=== PATIENT | male | born 1955 | race Two or more races ===

== ENCOUNTER 2024-10-21 18:45 | Emergency (ER) | payer SELFPAY ==
[2024-10-21 18:55] VITALS: BP 170/95; PULSE 101; RESP 20; TEMP 36.9; O2SAT 95
--- NOTE | 2024-10-21 19:05 | PD.EDRME ---
Rapid Medical Screening Exam RME Arrival date/time: 10/21/24 18:45 69M with no known PMH (doesn't go to PCP) presents to ED with daughter for worsening wound on mid back that's been there for the past few years but got worse recently. Chief Complaint: Wound/Laceration Vital signs: Vital Signs Temperature 98.4 F 10/21/24 18:55 Pulse Rate 101 H 10/21/24 18:55 Respiratory Rate 20 10/21/24 18:55 Blood Pressure 170/95 H 10/21/24 18:55 Pulse Oximetry (%) 95 10/21/24 18:55 Oxygen Delivery Method Room Air 10/21/24 18:55
--- NOTE | 2024-10-21 19:06 | XR_ITS ---
Examination: CT lumbar spine, without contrast. 2-D sagittal reconstructions. 2-D coronal reconstructions. 3-D reconstructions. Date and time of exam:October 21, 2024 1911 hrs. Indications: Low back pain upper back pain this month, drainage CTDI: vol (mGy):21.1 DLP: (mGycm):590 Technique: Multiple 1.25 mm axial sections of the lumbar spine without intravenous contrast have been obtained. 2-D sagittal and coronal reconstructions have been obtained. 3-D reconstructions have been obtained. Low dose protocols were performed. One or more of the following dose reduction techniques were used; automated exposure control, adjustment of the mA and/or KV according to patient size, use of iterative reconstruction technique. Findings: Adequate alignment lumbar vertebral bodies on the lateral view Fluid collection in the soft tissue posterior to L3 through the sacrum, 27 mm mediolateral dimension AP dimension at least 21 mm, cephalad caudad dimension the lumbar area at least 9 cm Chronic compression L3 Moderate to advanced disc narrowing L4-L5 Transitional S1 vertebral bodies L5-S1 6 mm central lumbar disc bulge L4-L5 foraminal disc bulges L3-L4 no disc protrusion L2-3 no disc protrusion Impression: Fluid collection in the subcutaneous tissue posterior to L3 through the sacrum, 21 x 27 x 19 mm, differential would include seroma, soft tissue abscess, less likely hematoma recommend MRI lumbar spine follow-up pre and postcontrast
--- NOTE | 2024-10-21 19:06 | XR_ITS ---
Examination: CT thoracic spine, without contrast. 2-D sagittal reconstructions. 2-D coronal reconstructions. 3-D reconstructions. Date and time of exam:October 21, 2019 01/23/2011. Indications: Onset back pain this month with drainage CTDI: vol (mGy):25.5 DLP: (mGycm):871 Technique: Multiple 1.25 mm axial sections of the thoracic spine have been obtained. 2-D sagittal and coronal reconstructions have been obtained. 3-D reconstructions have been obtained. Low dose protocols were performed. One or more of the following dose reduction techniques were used; automated exposure control, adjustment of the mA and/or KV according to patient size, use of iterative reconstruction technique. Findings: Alignment thoracic vertebral bodies No acute thoracic fracture Prominent thoracic spondylosis No acute thoracic fracture Small fluid collection which is posterior to lower thoracic vertebral bodies likely an extension from the lumbar soft tissue fluid collection, measuring 27 mm in the lateral dimension and 24 mm in AP dimension at least at the T11-T12 level Impression: Moderate thoracic spondylosis The fluid collection in the soft tissue posterior to the lumbar spine described on the earlier study extends to T11
[2024-10-21 19:56] LABS: Basophils # (Auto) 0.1 Thou/mm3 (0.0-0.2); Basophils % (Auto) 1 % (0-2.5); Eosinophils # (Auto) 0.1 Thou/mm3 (0.0-0.5); Eosinophils % (Auto) 2 % (0-10); Hematocrit 30.3 % (41.0-53.0); Hemoglobin 10.3 g/dL (13.5-16.0); Immature Granulocytes % (Auto) 1 % (0-0); Immature Granulocytes Auto 0.03 Thou/mm3 (0.00-0.00); Lymphocytes # (Auto) 0.9 Thou/mm3 (1.0-4.8); Lymphocytes % (Auto) 17 % (10-50); Mean Corpuscular Hemoglobin 30.6 pg (25.0-35.0); Mean Corpuscular Volume 90 fL (80-100); Monocytes # (Auto) 0.6 Thou/mm3 (0.0-0.8); Monocytes % (Auto) 13 % (0-12); Neutrophils # (Auto) 3.4 Thou/mm3 (1.8-7.7); Neutrophils % (Auto) 67 % (37-80); Nucleated Red Blood Cell % 0 /100 WBC (0); Platelet Count 114 Thou/mm3 (140-440); RDW Standard Deviation 45.8 fL (35.1-43.9); Red Blood Count 3.37 Miln/mm3 (4.50-5.90); White Blood Count 5.1 Thou/mm3 (3.8-10.6)
--- NOTE | 2024-10-21 20:18 | PD.EDWOUND ---
ED Wound/Laceration-RME/HPI General Chief Complaint: Wound/Laceration Stated Complaint: WOUND TO BACK POSSIBLE INFECTED Time Seen by Provider: 10/21/24 20:06 Arrival date/time: 10/21/24 18:45 RME / HPI RME / HPI narrative: 10/21/24 18:45 69M with no known PMH (doesn't go to PCP) presents to ED with daughter for worsening wound on mid back that's been there for the past few years but got worse recently. ------ This section includes all my notes and documentations, including HPI, PE, and ED course. Wagner Gonzales MD HPI: 69yo male accompanied by his daughter presents to the ED for a wound to his mid back. Daughter states the patient has had a wound to his mid back for the last few years, but reports he scratched it 3-4 days ago and has since developed redness, pain, and swelling to the area, so she brought him in for evaluation. They deny any fever, chills or any other associated symptoms. No other complaints reported. ROS: All negative except as documented in HPI. Physical Exam: General: Alert and oriented. No acute distress when remaining still. Eyes: Conjunctivae and lids clear. ENT: No nasal congestion. Neck: Supple. Heart: RRR. Lungs: No respiratory distress. Good air movement. No rhonchi, wheezing, rales. Abdomen: Soft and nontender. Legs: No clubbing, cyanosis, edema. Skin: Warm and dry. Fairwood-sized abscess formation with surrounding erythema and edema and calor and tenderness in the mid back. Neuro: Alert and oriented X 3. I reviewed all diagnostic test results. At this point, diagnoses include abscess. Abscess incision and drainage procedure note: The wound was prepped and draped in normal sterile fashion. Local anesthesia achieved with 1% lidocaine, 2 mL. Used #11 scalpel to make 0.5 cm incision. Profuse amount of pus drained. Topical dressing applied. Patient tolerated well with no complications. Prescribed clindamycin and provided good wound care instructions. Based on my best medical judgment, made decision no further evaluation or treatment indicated at this time. Patient understands and agrees to the discharge instructions customized and printed, see below. Discharge Instructions from Dr. Gonzales: ?Your abscess was successfully incised and drained pus. ?Take _clindamycin_ to help kill the germs causing your infection. ?Three times per day (until the incision closes), soak in warm water with antibacterial soap and Epsom salt. Try to gently squeeze out more pus. ?After drying as much as possible, apply new dressing. ?See your private doctor of your choice on _10/24/2024_ for recheck and further care, to make sure you are healing properly without any complications. ?-Seek immediate medical care with fever > 100.4, spreading redness, or with any concerns. Wagner Gonzales MD Related Data Previous Rx's ?Medication ?Instructions ?Recorded naproxen 500 mg tablet 500 mg PO BID #30 tabs 10/12/18 clindamycin HCl 300 mg capsule 300 mg PO QID 7 days #28 caps 10/21/24 Allergies Allergy/AdvReac Type Severity Reaction Status Date / Time No Known Allergies Allergy Verified 06/29/22 19:51 Review of Systems Review of Systems Systems Reviewed: All systems reviewed, normal except as documented Past Medical History Past Medical History CARDIAC: Positive Hypertension; Negative Congestive Heart Failure RESPIRATORY: Negative Chronic Obstructive Pulmonary Disease (COPD) GENITOURINARY: Negative Renal Disease ENDOCRINE: Negative Diabetes Mellitus Type 1 or Diabetes Mellitus Type 2 Social History SMOKING STATUS: Never smoker ED Exam Narrative Physical exam: As noted in HPI. Course Quality Measures none Orders Category Date Time Status CT lumbar spine wo con Stat Exams 10/21/24 19:[address] thoracic spine wo con Stat Exams 10/21/24 19:06 Completed A1C [Glycohemoglobin w (eAG)] Stat Lab 10/21/24 19:36 Completed CBC Stat Lab 10/21/24 19:36 Completed CMP [Comprehensive Metabolic Panel] Stat Lab 10/21/24 19:36 Completed CRP [C-Reactive Protein] Stat Lab 10/21/24 19:36 Completed Drug Screen,Urine Stat Lab 10/21/24 19:06 Ordered ESR [Sed Rate (ESR)] Stat Lab 10/21/24 19:36 Completed Vital Signs Vital signs: Vital Signs Temperature 98.4 F 10/21/24 18:55 Pulse Rate 101 H 10/21/24 18:55 Respiratory Rate 20 10/21/24 18:55 Blood Pressure 170/95 H 10/21/24 18:55 Pulse Oximetry (%) 95 10/21/24 18:55 Oxygen Delivery Method Room Air 10/21/24 18:55 Wound / Laceration MDM Narrative MDM Narrative:: Scribe Attestation: 10/21/24 - Kendra Servin am scribing for and in the presence of Dr. Gonzales. Patient data External records reviewed:: [facility] previous records (Per chart review, patient has no relevant previous ED visits.) Clinical information provided by:: patient Social determinants that could affect healthcare access:: none Patient has the following chronic illnesses:: HTN How is presenting disease/condition affected by chronic disease/condition?: uneffected by Evaluation data The following diagnostics were reviewed and interpreted by me:: lab results and radiology exam(s) Lab and/or radiology exams considered but not ordered:: none Interpretation Summary: Abscess Medications / Prescriptions Medications or Prescriptions considered but not ordered:: none Medication administrations:: None Consultations Consultation(s) initiated? (list below): No Diagnosis Wound Differential Diagnosis: abscess, abrasion and avulsion of skin Most likely diagnosis given after review of the tests above:: Abscess Admission Indicated Admission indicated?: not indicated Explain why admission is indicated or not indicated:: No criteria for admission. Admission Request Was there a request for admission?: No Disposition Plan Disposition Plan: Discharge Discharge Attestation Discharge Attestation: The patient and all family members were given an opportunity to ask questions and understood the discharge instructions. Discharge instructions specifically effects, indications for sooner follow up or return to the emergency department, and the expected course of current diagnosis. Patient condition: Stable Discharge Plan Plan Patient Disposition: HOME (Self Care) Prescriptions/Referrals Prescriptions/Med Rec: New clindamycin HCl 300 mg capsule 300 mg PO QID 7 Days Qty: 28 0RF No Action naproxen 500 mg tablet 500 mg PO BID Qty: 30 0RF Problem List Clinical Impression: Abscess Patient/Caregiver Discharge Instructions Discharge Activity: activity as tolerated Education Materials: ED Abscess, Incision And Drainage Additional Instructions: Discharge Instructions from Dr. Gonzales: ?Your abscess was successfully incised and drained pus. ?Take _clindamycin_ to help kill the germs causing your infection. ?Three times per day (until the incision closes), soak in warm water with antibacterial soap and Epsom salt. Try to gently squeeze out more pus. ?After drying as much as possible, apply new dressing. ?See your private doctor of your choice on _10/24/2024_ for recheck and further care, to make sure you are healing properly without any complications. ?-Seek immediate medical care with fever > 100.4, spreading redness, or with any concerns. Print Language: Amharic Stand Alone Forms: Aydee Award Info., Patient Portal Info Letter
[2024-10-21 20:21] LABS: Glucose Estimated Average 97 mg/dL (80-131)
[2024-10-21 20:28] LABS: Alanine Aminotransferase 10 U/L (10-49); Albumin, Serum 3.6 gm/dL (3.4-4.8); Albumin/Globulin Ratio 0.8 (1.2-2.2); Alkaline Phosphatase 93 U/L (46-116); Anion Gap 7 (7-16); Aspartate Amino Transferase 25 U/L (0-34); BUN/Creatinine Ratio 17 Ratio (12-20); Blood Urea Nitrogen 17 mg/dL (9-23); C-Reactive Protein 0.6 mg/dL (0.0-0.9); Calcium (Corrected) 9.3 mg/dL (8.5-10.1); Carbon Dioxide 25.9 mMol/L (20.0-31.0); Chloride 103 mMol/L (98-107); Globulin 4.4 gm/dL (2.3-3.5); Glucose 113 mg/dL (74-106); Osmolality,Calculated 274 (275-295); Sodium 136 mMol/L (136-145); eGFR > 60 See Note
[2024-10-21 21:15] LABS: Sed Rate (ESR) 69 mm/hr (0-20)
== END 2024-10-21 20:50 | disposition home or self-care (01) ==
LOC: SERX 22:50
PROVIDERS: Physician Assistant; Emergency Provider Emergency Medicine
DX: L02.212 Cutaneous abscess of back [any part, except buttock and flank] (principal)
CPT/HCPCS: 10060; 36415; 72128; 72131; 80053; 80307; 83036; 85025; 85652; 86140; 99284